=== PATIENT | female | born 1950 | race Two or more races ===

== ENCOUNTER 2025-02-17 13:54 | Inpatient (IN) | payer SELFPAY ==
[~2025-02-17] VITALS: Ht 149.9 cm; Wt 67.0 kg
[2025-02-17 14:59] LABS: MEAN PLATELET VOLUME 10.3 FL (7.4-10.4); RED CELL DISTRIBUTION WIDTH 15.1 % (11.5-14.5)
[2025-02-17 14:59] LABS: LEUKOCYTE ESTERASE ,URINE NEGATIVE (Neg); NITRITES, URINE NEGATIVE (Neg); OCCULT BLOOD,URINE TRACE-INTACT (Neg)
[2025-02-17 15:04] LABS: UA COLLECTION TYPE CLN CATCH MIDSTREAM
[2025-02-17 15:05] LABS: MUCUS STRANDS NONE SEEN /LPF (Neg); SQUAMOUS EPITHELIAL CELL,UR FEW /LPF (FEW)
--- NOTE | 2025-02-17 15:05 | Physician Documentation ---
History of Present Illness Chief Complaint: Abdominal Pain Stated Complaint: ABD PAIN Time Seen by MD: 14:26 Source: patient Exam Limitations: language barrier HPI 74 yof swedish speaking only h/o appendectomy p/w right sided abdominal pain after drinking a cup of coffee. No N/V/D. no blood in stools. Symptoms mild and improving since GI cocktail. Medication Reconciliation Allergies: Coded Allergies: No Known Allergies (Unverified , 02/17/25) Review of Systems All Other Systems at this time: Reviewed and Negative Constitutional: Denies: fever Cardiovascular: Denies: chest pain Gastrointestinal: Reports: abdominal pain Genitourinary: Denies: burning, frequency, flank pain Physical Exam Vital Signs: Temperature: 97.9, Source: Temporal, Heart Rate: 62, Respiratory Rate: 16, BP: 170/79, Pulse Oximetry: 99 Oxygen Flow Rate: 0 Physical Exam well appearing no distress awake alert oriented moist mucous membranes lungs ctab cardiac no murmur abdomen RuQ ttp. No guarding no rebound. skin pwd. Progress Progress Note consulted Dr. Lopez recommends lap cholecystectomy admit hospitalist consulted hospitalist agrees with admission plan Results/Orders Reviewed/noted all lab results: Yes Results/Orders Orders - BAUDILIO ENGLE MD BMP (02/17/25 14:24) Lipase (02/17/25 14:24) CMP (02/17/25 14:24) Ua W/Microscopic, Cult If Ind (02/17/25 14:49) Completed Orders - BAUDILIO ENGLE MD Cbc/Diff (02/17/25 14:24) Vital Signs 02/17/25 14:20 Temp 97.9 Pulse 62 Resp 16 B/P (MAP) 170/79 Pulse Ox 99 O2 Flow Rate 0 Laboratory Tests Test 02/17/25 14:47 02/17/25 14:49 White Blood Count 12.3 H Red Blood Count 4.52 Hemoglobin 13.3 Hematocrit 39.7 Mean Corpuscular Volume 87.8 Mean Corpuscular Hemoglobin 29.4 Mean Corpuscular Hemoglobin Concent 33.5 Red Cell Distribution Width 15.1 H Platelet Count 217 Mean Platelet Volume 10.3 Neutrophils (%) (Auto) 86.0 H Lymphocytes (%) (Auto) 11.3 L Monocytes (%) (Auto) 2.5 Eosinophils (%) (Auto) 0 Basophils (%) (Auto) 0.2 Neutrophils # (Auto) 10.6 H Lymphocytes # (Auto) 1.4 Monocytes # (Auto) 0.3 Eosinophils # (Auto) 0.0 Basophils # (Auto) 0.0 CBC Comment Chemistry Comments Urine Specimen Description Cln catch midstream Urine Color Yellow Urine Clarity Clear Urine pH 7.0 Urine Specific [place] 1.015 Urine Protein Negative Urine Glucose (UA) Negative Urine Ketones 40 H Urine Occult Blood Trace-intact Urine Nitrite Negative Urine Bilirubin Negative Urine Urobilinogen 0.2 Urine Leukocyte Esterase Negative Volume Urine Centrifuged 10 ml Urine Comment EKG/XRAY/CT/US/VASC/MRI Ultrasound : Impression independent interpretation of ultrasound by myself shows no effusion, no cholelithiasis or cholecystitis. Medical Decision Making Differential Dx:Considerations: Include: Cholangitis, Cholelithasis, Constipation Departure Disposition: ADMITTED INPATIENT Admitted to Inpatient Unit: to hospitalist Impression: Primary Impression: Acute cholecystitis Additional Impression Text 74 yof h/o appendectomy, p/w RUQ pain after drinking coffee. Labs with mild leukocytosis 12.3. No fever. U/s negative. S/o Dr. Vee pending CT abd pelvis. Referrals: NO PRIMARY CARE PROVIDER (PCP) Signature Scribe Signature: na Attestation: BAUDILIO Nieto MD Feb 17, 2025 15:05
[2025-02-17 15:13] LABS: CREATININE 0.74 MG/DL (0.40-0.90); TOTAL CARBON DIOXIDE 24.4 MMOL/L (24-32); eGFR 77 ML/MIN
--- NOTE | 2025-02-17 16:41 | RADIOLOGY REPORT ---
INDICATION: abdominal pain TECHNIQUE: Multiple real-time sonographic images were obtained of the right upper quadrant. COMPARISON: None FINDINGS: The liver demonstrates normal echotexture without focal mass lesions. The liver measures 1 2.9 cm. There is no intrahepatic or extrahepatic ductal dilatation. The common duct measures 0.4 cm. The gallbladder is without evidence of stone or sludge. The gallbladder wall measures 0.3 cm and is w ithin normal limits. The right kidney measures 7.9 cm. The right kidney is normal in contour, size, and shape. The echogen icity is normal. There is no hydronephrosis. The pancreas is not well visualized due to overlying bowel gas. IMPRESSION: Unremarkable right upper quadrant sonogram.
[2025-02-17] MEDS: LIDOcaine 2% Viscous 15ml cup MM PRN (17:06)
[2025-02-17] MEDS: mag hydrox/Alum hydrox/simeth 30ml oral suspension PO ONE (17:06)
[2025-02-17] MEDS ORDERED: iohexol 300mg/ml 100ml inj. ONE (17:31)
--- NOTE | 2025-02-17 19:58 | RADIOLOGY REPORT ---
CT OF THE ABDOMEN AND PELVIS WITH CONTRAST. HISTORY: abdominal pain COMPARISON: Right upper quadrant ultrasound obtained earlier the same day. TECHNIQUE: Helical axial CT images of the abdomen and pelvis were obtained with intravenous contrast. Multiplanar reformats. One or more of the following radiation dose reduction techniques were used fo r this examination: automated exposure control, adjustment of the mA and/or kV according to patient s ize, use of iterative reconstruction technique. FINDINGS: Imaged lung bases are grossly clear. Liver: No discrete Hepatic lesions as visualized. Gallbladder and biliary system: Distended gallbladder with gallbladder wall edema. Approximately 1.1 cm calculus seen near the gallbladder neck. This is not demonstrated on the recent ultrasound. Pancreas: Negative. Spleen: Negative. Adrenal Glands: Negative. Kidneys and collecting system: No hydroureteronephrosis. Retroperitoneum: Aortoiliac atherosclerotic calcifications. No evidence of abdominal aortic aneurysm . Lymph nodes: No discretely Enlarged lymph nodes identified. Bowel: Moderate hiatal hernia. No evidence of bowel obstruction. Normal caliber appendix. Colonic di verticulosis without definite CT evidence of diverticulitis at this time. No free intraperitoneal ai r or fluid identified. Small fat containing umbilical hernia. Pelvis: No sizable bladder calculus. Osseous structures: No destructive osseous lesions identified. Grade 1 anterolisthesis of L5 on S1. IMPRESSION: CT findings suggesting cholecystitis. Approximately 1.1 cm stone seen the gallbladder neck. A few other findings as above.
[2025-02-17] MEDS ORDERED: piperacillin/tazo 3.375gm/50ml 50 ML IV SCH (20:35)
[2025-02-17] MEDS: piperacillin/tazo 3.375gm/50ml 50 ML IV SCH (20:48)
--- NOTE | 2025-02-17 21:37 | PROGRESS NOTE ---
Progress Note ID Providers to CC ~ Progress Note Progress Note: pt seen and examined-needs kecia العلي in am JENNI WILLARD MD Feb 17, 2025 21:37
[2025-02-17] MEDS ORDERED: magnesium sulf-water 4G/100mL 100 ML IV PRN (22:10)
[2025-02-17] MEDS ORDERED: HYDROcodone/acetaminophen 5mg/325mg tablet PO PRN (22:10)
[2025-02-17] MEDS ORDERED: magnesium sulf-water 2g/50mL 50 ML IV PRN (22:10)
[2025-02-17] MEDS ORDERED: potassium Cl 20 mEq SR tablet PO PRN (22:10)
[2025-02-17] MEDS ORDERED: magnesium Cl slow-release 64mg tablet PO PRN (22:10)
--- NOTE | 2025-02-17 22:29 | HISTORY AND PHYSICAL-Residence ---
History & Physical Providers to CC Resident Creating Document: DIEGOSEPIDEH JOELLE ~ History of Present Illness Reason for Admit\Complaint: ACUTE CHOLECYSTITIS History of Present Illness History is limited due to language barrier, [place]-speaking patient, history gathered from daughter at bedside. 74-year-old female with no significant past medical history presented to the ED with chief complaints of abdominal pain since earlier this morning. Complaints of pain in the right upper quadrant, started at 8:00 a.m. this morning, associated with persistent nausea and vomiting. Denies significant chest pains, diaphoresis, fevers/chills, nasal congestion, expectoration, palpitations, or weight loss/weight gain. No other associated symptoms. Denies drinking alcohol or smoking. Denies recreational drug use. Does not use any home medications. Discussed advanced care directives and she wishes to be a full code. Allergies: Coded Allergies: No Known Allergies (Unverified , 02/17/25) Past Medical History Past Medical History None ROS All Other Systems: Reviewed and Negative ROS Reviewed in full. All negative except for pertinent positive HPI. Constitutional: Denies: fever Cardiovascular: Denies: chest pain Gastrointestinal: Reports: abdominal pain Genitourinary: Denies: burning, frequency, flank pain Exam Vitals: Vital Signs Date Time Temp Pulse Resp B/P (MAP) Pulse Ox O2 Delivery O2 Flow Rate FiO2 02/17/25 20:48 60 16 158/57 (90) 96 02/17/25 14:20 97.9 0 General: General: Awake and Alert, no acute distress. HEENT: Conjunctiva pink, Sclera clear, Mucus Membranes moist. Neck: Supple without masses and tenderness. Resp: Unlabored. Equal breath sounds bilaterally. Heart: Regular rhythm, normal S1 and S2, no rub, murmur or gallop. Abdomen: Right upper quadrant pain and tenderness, Bacon sign present. No guarding or rigidity. Normal bowel sounds x4. Extremities: Normal ROM, no swelling, nontender. No cyanosis,clubbing or edema. ENVIRONMENTAL SERVICES ASSISTANT: No gross motor or sensory abnormalities. Skin: Warm and Dry. Diagnostic Data Last Recorded Lab Results: 02/17/25 1447 02/17/25 1447 Advance Care Planning Advanced Care plannin - 30 Minutes Additional Plan 74-year-old female with no significant past medical history presented to the ED with chief complaints of abdominal pain since earlier this morning. Acute cholecystitis WBCs 12.3, vitals stable CT abdomen pelvis: Findings suggestive of acute cholecystitis, 1.1 cm stone in the gallbladder neck. Pain medications p.r.n. Empiric antibiotics IV Zosyn Dr. Sahu consulted, appreciate recommendations NPO at midnight, surgery in a.m. Code Status: Full code DVT prophylaxis: SCDs Analgesia/sedation: Morphine/[place] Line/tube: PIV GI prophylaxis: None Nutrition: NPO Prognosis: Guarded Disposition: Continue medical management. Sepideh Blanco MD. IM Resident PGY-3 I saw and discussed with the resident team Pt with acute cholecystitis. Sx already consulted On Zosyn Agree with assessment and plan Date of Service: Feb 17, 2025 Billing Provider: NICOLE SANTOS MD, ELIZABETH, RES Feb 17, 2025 22:29 NICOLE SANTOS MD Feb 18, 2025 04:02
[2025-02-17] MEDS: normal saline 1000ml 1,000 ML IV SCH (22:49)
[2025-02-17 23:30] VITALS: BP 149/63; PULSE 62; RESP 20; TEMP 97.8; O2SAT 97
[2025-02-18] VITALS (27 sets, daily range): BP systolic 120–174; BP diastolic 63–103; PULSE 57–77; RESP 12–20; TEMP 97.5–98.7; O2SAT 92–99
[2025-02-18] MEDS ORDERED: piperacillin/tazo 3.375gm/50ml 50 ML IV SCH
[2025-02-18] MEDS: potassium Cl 20 mEq SR tablet PO PRN (01:03)
[2025-02-18 05:47] LABS: INR 1.1 INR
[2025-02-18 05:49] LABS: MEAN PLATELET VOLUME 11.2 FL (7.4-10.4); RED CELL DISTRIBUTION WIDTH 15.0 % (11.5-14.5)
[2025-02-18 05:56] LABS: CREATININE 0.49 MG/DL (0.40-0.90); PHOSPHORUS 3.4 MG/DL (2.3-4.5); TOTAL CARBON DIOXIDE 23.8 MMOL/L (24-32); eCRCL 71 ML/MIN; eGFR > 90 ML/MIN
[2025-02-18] MEDS ORDERED: morphine 4 MG/ML inj SYRINge IV PRN (07:35)
[2025-02-18] MEDS ORDERED: hydrALAZINE 20mg/ml inj. IV PRN (07:35)
[2025-02-18] MEDS: ringers solution, lacted 1,000 ML IV SCH (07:35)
[2025-02-18] MEDS ORDERED: ondansetron/PF 4mg/2ml inj IV PRN ×2 (07:35→12:15)
[2025-02-18] MEDS ORDERED: fentaNYL/PF 50MCG/1 ML 2ML syringe IV PRN ×2 (07:35)
[2025-02-18] MEDS: K and/or MAG REPLACEMENT MC SCH (08:00)
--- NOTE | 2025-02-18 08:39 | ELECTROCARDIOGRAPH REPORT ---
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 PEGGY Way Measurements Intervals [place] Rate: 60 P: 56 MS: 132 QRS: 73 QRSD: 93 T: 56 QT: 451 QTc: 451 Interpretive Statements Sinus rhythm Electronically Signed On 02-18-2025 16:30:[address] Please click the below link to view image of tracing.
[2025-02-18 08:51] LABS: INR 1.1 INR
--- NOTE | 2025-02-18 08:51 | RADIOLOGY REPORT ---
CHEST RADIOGRAPH Indication: pre op greater than 70 yrs old. pain Technique: Single frontal view of the chest was obtained Comparison: None FINDINGS: Lines and Tubes: None Lungs: No focal consolidation. Pleura: No effusion. No pneumothorax. Cardiomediastinal contours: Unremarkable Bones: No acute osseous abnormality. IMPRESSION: No acute cardiopulmonary disease.
[2025-02-18] MEDS ORDERED: midazolam 1 mg/ML 2ml injection ONE (10:15)
[2025-02-18] MEDS ORDERED: fentaNYL/PF 50MCG/1 ML 2ML syringe ONE (10:15)
[2025-02-18] MEDS ORDERED: rocuronium 10mg/ml inj IV ONE (10:16)
[2025-02-18] MEDS ORDERED: glycopyrrolate 0.2mg/ml inj ONE (10:16)
[2025-02-18] MEDS ORDERED: acetaminophen 1,000mg/100ml IV 100 ML IV ONE (10:16)
[2025-02-18] MEDS ORDERED: propofol inj 20 ML IV ONE (10:16)
[2025-02-18] MEDS ORDERED: ondansetron/PF 4mg/2ml inj ONE (10:16)
[2025-02-18] MEDS ORDERED: LIDOcaine 2% (20mg/ml) 5ml vial ONE (10:17)
--- NOTE | 2025-02-18 10:23 | PROGRESS NOTE ---
Progress Note ID Providers to CC ~ Progress Note Progress Note: discussed procedure including risks/benefits/alternatives JENNI WILLARD MD Feb 18, 2025 10:23
[2025-02-18] MEDS: BUPIVAcaine/PF 2.5 mg/ml (0.25%) 30ml vial IJ ONE (10:36)
[2025-02-18] MEDS ORDERED: dexamethasone sod phosphate 4mg/ml inj. ONE (10:48)
[2025-02-18] MEDS ORDERED: labetalol 20mg/4ml (5mg/ml) syringe IV ONE (11:27)
[2025-02-18] MEDS: labetalol 20mg/4ml (5mg/ml) syringe IV PRN (12:06)
--- NOTE | 2025-02-18 12:08 | OPERATIVE REPORT ---
Operative Report Providers to CC ~ Date of Procedure: Feb 18, 2025 Pre-Operative Diagnosis: ACUTE CHOLECYSTITIS Post-Operative Diagnosis SAME with incarcerated umbilical hernia Procedure Performed robo severiano/robo repair umbilical hernia Surgeon: florina Chemical Supervisor none Anesthesiologist: Raul Lopez Type of Anesthesia: General Findings: cholecystitis/incarcerated umbilical hernia Estimated Blood Loss: min Specimen Removed: JENNI Stewart MD Feb 18, 2025 12:08
[2025-02-18] MEDS: ondansetron/PF 4mg/2ml inj IV PRN (12:13)
[2025-02-18] MEDS ORDERED: HYDROcodone/acetaminophen 5mg/325mg tablet PO PRN (12:15)
[2025-02-18] MEDS: HYDROcodone/acetaminophen 10/325mg tab PO PRN (13:01)
--- NOTE | 2025-02-18 13:26 | OPERATIVE REPORT ---
DATE OF SURGERY: 02/18/2025 DICTATING PHYSICIAN: Nick Mckenzie MD PREOPERATIVE DIAGNOSES: Cholecystitis and cholelithiasis. POSTOPERATIVE DIAGNOSES: Cholecystitis and cholelithiasis with incarcerated umbilical hernia. PROCEDURES PERFORMED: * Robotic repair of incarcerated umbilical hernia, less than 3 cm. * Robotic cholecystectomy. SURGEON: Nick Mckenzie MD ANESTHESIA: General/Dr. Lopez. DRAINS: None. INDICATIONS FOR OPERATION: A 74-year-old female presented in the ER with abdominal pain, found to have cholecystitis, taken to surgery for robotic cholecystectomy and incarcerated umbilical hernia identified intraoperatively. DESCRIPTION OF PROCEDURE: The patient was placed supine on the operating table. After induction of general anesthesia and placement of endotracheal tube, the abdomen was prepped and draped. A subumbilical incision was then made and Jabari port placed using open technique. Pneumoperitoneum was begun by insufflation of CO2. Additional ports were placed in the left lower quadrant. The patient had incarcerated umbilical hernia. Two additional ports were placed on the left. Robot was then brought to the field. Camera port docked. Camera placed, camera targeted. Additional ports were then docked and instruments were then placed. Adhesions were then taken down. Umbilical hernia was then reduced. Defect was closed with a suture of 0 V-Loc oversewn multiple times. When hemostasis was found to be adequate, robotic instruments were removed. Robot undocked from the field. Two additional ports were placed in the right upper quadrant. Robot brought back to the field. Camera placed, camera targeted. Additional ports were docked and instruments placed. Gallbladder fundus was grasped and retracted cephalad after the abdomen was explored. Cystic duct identified, isolated, ligated, clipped and divided as was the cystic artery. The gallbladder was mobilized out of the gallbladder fossa. When hemostasis was found to be adequate, robotic instruments were removed. Gallbladder was placed in bag using endoscope. Abdomen was copiously irrigated with antibiotic-containing solution. Ports were then removed with no active bleeding. Final port and camera withdrawn. Gallbladder then removed. Wounds were closed in layers. Skin was closed with subcuticular stitch. Dressings applied. The patient was transferred to recovery in stable condition. Nick Mckenzie MD TID: [id number] RECEIPT: [id number] KATHY/WILLIE
[2025-02-18] MEDS: HYDROmorphone inj. 0.5 MG/0.5 ML DISP.SYRIN IV PRN (15:57)
--- NOTE | 2025-02-18 18:33 | CARDIOLOGY REPORT ---
APPROVED REPORT EXAM: Comprehensive 2D, Doppler, and color-flow Echocardiogram. Patient Location: 347 B Blood Pressure: 149/63 mmHg Heart Rate: 61 bpm Rhythm: SINUS Indications PRE-OP CHOLECYSTECTOMY Clinical Informatics Educator: none Previous echo: none 2D Dimensions RVDd 3.0 cm LA Diam5.2 cm IVSd 1.0 (0.7-1.1cm) LVDd 4.2 cm PWd 0.9 (0.7-1.1cm) RA Major4.7 cm IVSs 1.3 (0.8-1.2cm) RA Minor4.2 cm LVDs 3.2 (2.5-4.0cm) PWs 1.2 (0.8-1.2cm) LVOT Diameter 1.95 (1.8-2.4cm) LVEF(%) 68.0 (>50%) Ao Asc Diam.2.66 cmIVC 15.53 mm FS (%) 31.1 % SV 45.2 ml CO 2.7 L/min M-Mode Dimensions Left Atrium(MM) 3.73 (2.5-4.0cm) Aortic Root 2.75 (2.2-3.7cm) Aortic Cusp Exc 1.79 (1.5-2.0cm) MV EPSS 0.3 (<0.5cm) Biplane 2D LA Volumes LA ESV Index 27.23 mL/m2 Aortic Valve AoV Peak Shaji. 128.5 cm/s AoV VTI 25.8 cm AO Peak GR. 6.6 mmHg AO Mean GR. 4 mmHg LVOT VTI 23.19 cm LVOT Peak Shaji. 105.1 cm/s MARY(VTI)/BSA 2.69 cm2/m2 MARY (VTI) 2.69 cm2 Mitral Valve MV E Velocity 74.9 cm/s MV Peak Gr. 3 mmHg MV DECEL TIME 220 ms MV A Velocity 94.3 cm/s MV PHT 60 ms E/A Ratio 0.8 MVA (PHT) 3.67 cm2 MV VMax79.6 cm/s TDI Medial E' P. V 8.37 cm/s E/Medial E' 8.9 Tricuspid Valve TR P. Velocity 289 cm/s RAP ESTIMATE 10 mmHg TR Peak Gr. 34 mmHg RVSP 44 mmHg Pulmonary Vein S1 Velocity 71.5 cm/s D2 Velocity 45.0 cm/s PVa Hgciwcpq47.6 cm/s PVa [id number] msec LEFT VENTRICLE Normal LV size and wall thickness. Overall systolic function is normal. LVEF is 65-70%. RIGHT VENTRICLE RV is normal size and function. RVSP is estimated at 44 mmHg. ATRIA The left atrium size is normal. The right atrium size is normal. AORTIC VALVE Trileaflet AV appears mildly sclerotic without stenosis. Trivial insufficiency. MITRAL VALVE Mild MV annular calcification without stenosis. Mild regurgitation. TRICUSPID VALVE TV appears structurally normal with mild regurgitation. PULMONIC VALVE Normal PV without stenosis, physiologic insufficiency. GREAT VESSELS Aortic root is normal in size. Ascending aorta is normal in size. The IVC is normal in size and colla pses greater than 50% with inspiration. PERICARDIUM Normal pericardium. No effusion. Other Information Study Quality: Adequate Conclusion Normal LV size and wall thickness. Overall systolic function is normal. LVEF is 65-70%. RV is normal size and function. RVSP is estimated at 44 mmHg. The left atrium size is normal. The right atrium size is normal. Trileaflet AV appears mildly sclerotic without stenosis. Trivial insufficiency. Mild MV annular calcification without stenosis. Mild regurgitation. TV appears structurally normal with mild regurgitation. Normal pericardium. No effusion.
--- NOTE | 2025-02-18 18:46 | CONSULTATION ---
DATE OF CONSULTATION: 02/17/2025 DICTATING PHYSICIAN: Nick Mckenzie MD REASON FOR CONSULTATION: Abdominal pain. HISTORY OF PRESENT ILLNESS: The patient is a 74-year-old female who is in the ER with complaints of upper abdominal discomfort. cholecystitis is now requested for the questioning. She has had associated nausea, vomiting, right upper quadrant pain. No shortness of breath. No fever or chills. PAST MEDICAL HISTORY: Essentially unremarkable. PAST SURGICAL HISTORY: Appendectomy. HOME MEDICATIONS: See chart. ALLERGIES: None. SOCIAL HISTORY: Unremarkable. REVIEW OF SYSTEMS: See HPI. PHYSICAL EXAMINATION: GENERAL: Well-nourished female in no distress. VITAL SIGNS: Unremarkable. HEART: Regular rate and rhythm. LUNGS: Patent. ABDOMEN: She has right upper ____ tenderness. SKIN: Unremarkable. NEUROLOGIC: Exam is nonfocal. LABORATORY DATA: Included WBC of 12, hematocrit of 39, platelet count 217. LFTs essentially unremarkable, lipase 26. IMAGING STUDIES: CT abdomen and pelvis confirms evidence of cholecystitis. IMPRESSION: Cholecystitis. RECOMMENDATIONS: * Admit. * Hydrate. * global cholecystectomy. Nick Mckenzie MD TID: [id number] RECEIPT: [id number] KB/VIS/AMA
--- NOTE | 2025-02-18 20:19 | PROGRESS NOTE ---
Daily Progress Note Providers to CC ~ Antibiotic Timeout Antibiotic Ordered?: Yes Subjective The patient is status post laparoscopic robotic cholecystectomy and repair of incarcerated umbilical hernia with mesh this morning. The patient is doing well postop and had no acute complaints in his no other health problems Objective Vital Signs Date Time Temp Pulse Resp B/P (MAP) Pulse Ox O2 Delivery O2 Flow Rate FiO2 02/18/25 15:57 18 02/18/25 15:45 97.8 74 148/77 (100) 97 Nasal Cannula 2.0 Result Diagram: 02/18/2541602/18/25416 Gen. No acute distress alert and oriented 4 Lungs clear to ascultation bilaterally, no wheezes rales or rhonchi appreciated Heart normal sinus rhythm no murmurs rubs or clicks noted Abdomen soft mildly distended nontender bowel sounds are normoactive Lower extremities no clubbing cyanosis, nor edema appreciated bilaterally Coagulation Studies Laboratory Tests Test 02/18/25 07:45 Prothrombin Time 10.9 SECONDS (9.0-12.0) INR International Normalized Ratio 1.1 INR Coagulation Comments Problem\Assessment\Plan Problems/Diagnosis: (1) Acute cholecystitis # acute cholecystitis Status post robotic laparoscopic cholecystectomy with Dr. Mckenzie Continue IV Zosyn On a clear liquid diet # incarcerated umbilical hernia Status post laparoscopic robotic umbilical hernia repair with mesh with surgeon Dr. Mckenzie A clear liquid diet # DVT prophylaxis SCDs Date of Service: Feb 18, 2025 Billing Provider: NITZA ADHIKARI DO Common Visit Codes: [id number] INP/OBS CARE(MOD) NITZA ADHIKARI DO Feb 18, 2025 20:19
[2025-02-19 04:31] LABS: MEAN PLATELET VOLUME 10.4 FL (7.4-10.4); RED CELL DISTRIBUTION WIDTH 14.9 % (11.5-14.5)
[2025-02-19 04:48] LABS: CREATININE 0.73 MG/DL (0.40-0.90); PHOSPHORUS 3.1 MG/DL (2.3-4.5); TOTAL CARBON DIOXIDE 24.6 MMOL/L (24-32); eCRCL 48 ML/MIN; eGFR 78 ML/MIN
[2025-02-19 06:00] VITALS: BP 133/63; PULSE 79; RESP 16; TEMP 98.6; O2SAT 93
[2025-02-19 07:55] VITALS: RESP 16
[2025-02-19 10:00] VITALS: BP 128/62; PULSE 60; RESP 19; TEMP 97.7; O2SAT 95
--- NOTE | 2025-02-19 14:37 | PROGRESS NOTE ---
Progress Note ID Providers to CC ~ Progress Note Progress Note: doing well/anticipate dc in am JENNI WILLARD MD Feb 19, 2025 14:37
[2025-02-19] MEDS ORDERED: NO HOME MEDS (14:42)
--- NOTE | 2025-02-19 17:41 | PROGRESS NOTE ---
Daily Progress Note Providers to CC ~ Antibiotic Timeout Antibiotic Ordered?: Yes Subjective The patient's encounter occurred with the presence of the video taxation consultant s ervice. The patient is RN Meghan informed me today that the patient has been nauseated and was experiencing some abdominal discomfort this morning however this has since resolved and the patient is no longer is experiencing nausea however she continues to have poor p.o. intake in his not had a bowel movement as of yet Objective Vital Signs Date Time Temp Pulse Resp B/P (MAP) Pulse Ox O2 Delivery O2 Flow Rate FiO2 02/19/25 10:00 97.7 60 19 128/62 (84) 95 Room Air 02/18/25 22:00 2.0 Result Diagram: 02/19/2541102/19/25411 Gen. No acute distress alert and oriented 4 Lungs clear to ascultation bilaterally, no wheezes rales or rhonchi appreciated Heart normal sinus rhythm no murmurs rubs or clicks noted Abdomen soft mildly distended nontender bowel sounds are slightly hypoactive Lower extremities no clubbing cyanosis, nor edema appreciated bilaterally Coagulation Studies Laboratory Tests Test 02/18/25 07:45 Prothrombin Time 10.9 SECONDS (9.0-12.0) INR International Normalized Ratio 1.1 INR Coagulation Comments Problem\Assessment\Plan Problems/Diagnosis: (1) Acute cholecystitis This is a 74-year-old Montene[place] only speaking patient who presented with acute cholecystitis and was discovered she has a an incarcerated umbilical hernia I was anticipating discharging the patient this morning however the patient had some nausea and a abdominal discomfort when I spoke to Meghan the patient's RN however this has since resolved anticipate the patient will be discharged in the a.m.. # acute cholecystitis Status post robotic laparoscopic cholecystectomy with Dr. Mckenzie on the morning of 02/18/2025 Continue IV Zosyn On a clear liquid diet Improving # incarcerated umbilical hernia Status post laparoscopic robotic umbilical hernia repair with mesh with surgeon Dr. Mckenzie on the morning of 02/18/2025 A clear liquid diet Improving # DVT prophylaxis SCDs Date of Service: Feb 19, 2025 Billing Provider: NITZA ADHIKARI DO Common Visit Codes: [id number] INP/OBS CARE(MOD) NITZA ADHIKARI DO Feb 19, 2025 17:41
[2025-02-19 18:00] VITALS: BP 145/67; PULSE 67; RESP 18; TEMP 97.5; O2SAT 95
[2025-02-19] MEDS: mag hydrox/Alum hydrox/simeth 30ml oral suspension PO PRN (21:53)
[2025-02-19 22:00] VITALS: BP 102/49; PULSE 76; RESP 13; TEMP 98.4; O2SAT 93
[2025-02-20 05:47] LABS: MEAN PLATELET VOLUME 11.2 FL (7.4-10.4); RED CELL DISTRIBUTION WIDTH 14.8 % (11.5-14.5)
[2025-02-20 06:19] LABS: CREATININE 0.71 MG/DL (0.40-0.90); PHOSPHORUS 3.2 MG/DL (2.3-4.5); TOTAL CARBON DIOXIDE 23.7 MMOL/L (24-32); eCRCL 49 ML/MIN; eGFR 81 ML/MIN
[2025-02-20 06:39] LABS: LARGE PLATELETS MODERATE; PLATELET ESTIMATE NORMAL
[2025-02-20 06:49] VITALS: BP 136/66; PULSE 73; RESP 14; TEMP 98.1; O2SAT 91
[2025-02-20 10:00] VITALS: BP 120/58; PULSE 77; RESP 15; TEMP 97.5; O2SAT 95
[2025-02-20] MEDS: metoclopramide 5 mg/ml inj IV SCH (11:36)
[2025-02-20] MEDS ORDERED: metoclopramide 5 mg/ml inj IV SCH (14:00)
--- NOTE | 2025-02-20 14:24 | PROGRESS NOTE ---
Progress Note ID Providers to CC ~ Progress Note Progress Note: slow progress/add JENNI Montero MD Feb 20, 2025 14:24
[2025-02-20] MEDS: potassium Cl 40MEQ/1/2NS 520ml 520 ML IV PRN (14:58)
[2025-02-20 18:00] VITALS: BP 120/63; PULSE 76; RESP 17; TEMP 97.9; O2SAT 94
--- NOTE | 2025-02-20 18:53 | PROGRESS NOTE ---
Daily Progress Note Providers to CC ~ Antibiotic Timeout Antibiotic Ordered?: Yes Subjective Patient was seen in presence of nursing staff and patient's daughter today. Patient is able to ambulate by herself to the bathroom. Pass the liquidy brown color stool which I saw in hat. Surgical pain present over abdomen. No other new concerns. Patient also has pain over right shoulder which she has since last five years according to nursing staff Objective Vital Signs Date Time Temp Pulse Resp B/P (MAP) Pulse Ox O2 Delivery O2 Flow Rate FiO2 02/20/25 10:00 97.5 77 15 120/58 (78) 95 Room Air 02/18/25 22:00 2.0 Result Diagram: 02/20/25 04102/20/25410 General-patient not in any acute distress, alert awake chronically ill- appearing HEENT-atraumatic normocephalic, neck supple without elevated JVD, no thyromegaly or carotid bruit. No lymphadenopathy bilaterally. Eyes-no icterus or pallor seen in eyes Chest-clear to auscultation bilaterally, breathing nonlabored no tachypnea, no wheezing, no crepitation, no crackles. Heart-S1-S2 normal, regular heart rate no murmur Abdomen bowel sounds positive on auscultation, soft nondistended signs of mild discomfort present over surgical site. no guarding, no rigidity Skin no active skin rash Neurology-grossly intact, nonfocal alert awake Extremity- no pedal edema able to move all 4 extremities, ambulate Psychiatry - patient is not confused or agitated cooperated during physical examination Coagulation Studies Laboratory Tests Test 02/18/25 07:45 Prothrombin Time 10.9 SECONDS (9.0-12.0) INR International Normalized Ratio 1.1 INR Coagulation Comments Problem\Assessment\Plan Problems/Diagnosis: (1) Acute cholecystitis This is a 74-year-old Romansh only speaking patient who presented with acute cholecystitis and was discovered she has a an incarcerated umbilical hernia I was anticipating discharging the patient this morning however the patient had some nausea and a abdominal discomfort when I spoke to Meghan the patient's RN however this has since resolved anticipate the patient will be discharged in the a.m.. # acute cholecystitis Status post robotic laparoscopic cholecystectomy with Dr. Mckenzie on the morning of 02/18/2025 Continue IV Zosyn On a clear liquid diet Improving # incarcerated umbilical hernia Status post laparoscopic robotic umbilical hernia repair with mesh with surgeon Dr. Mckenzie on the morning of 02/18/2025 A clear liquid diet Improving # DVT prophylaxis SCDs Further management as per surgical team we will continue to follow patient in AM . Date of Service: Feb 20, 2025 Billing Provider: CHETAN CHE MD Common Visit Codes: [id number] INP/OBS CARE(HIGH) CHETAN CHE MD Feb 20, 2025 18:53
[2025-02-20 20:00] VITALS: RESP 18
[2025-02-20 22:00] VITALS: BP 159/70; PULSE 67; RESP 12; TEMP 97.8; O2SAT 97
[2025-02-21 04:42] LABS: MEAN PLATELET VOLUME 10.5 FL (7.4-10.4); RED CELL DISTRIBUTION WIDTH 14.6 % (11.5-14.5)
[2025-02-21 06:00] VITALS: BP 149/65; PULSE 78; RESP 17; TEMP 97.2; O2SAT 97
[2025-02-21 06:49] LABS: CREATININE 0.70 MG/DL (0.40-0.90); PHOSPHORUS 3.5 MG/DL (2.3-4.5); TOTAL CARBON DIOXIDE 25.3 MMOL/L (24-32); eCRCL 50 ML/MIN; eGFR 82 ML/MIN
[2025-02-21] MEDS: pantoprazole 40mg Tablet.DR PO ONE (09:55)
[2025-02-21 10:00] VITALS: BP 161/95; PULSE 75; RESP 17; TEMP 98; O2SAT 98
[2025-02-21 13:42] LABS: C DIFFICILE TOXINS A&B NEGATIVE (Neg)
[2025-02-21 13:43] LABS: C DIFF ANTIGEN NEGATIVE (NEGATIVE); C DIFF SPECIMEN=DIARRHEA? ACCEPTABLE
--- NOTE | 2025-02-21 13:55 | PROGRESS NOTE ---
Progress Note ID Providers to CC ~ Progress Note Progress Note: doing well/ok to dc JENNI WILLARD MD Feb 21, 2025 13:55
[2025-02-21] MEDS ORDERED: ACET-1008 PO (15:34)
[2025-02-21] MEDS ORDERED: HYDR-3965 PO (15:43)
[2025-02-21] MEDS ORDERED: CIPR-259 PO (15:43)
[2025-02-21] MEDS ORDERED: METR-159 PO (15:43)
[2025-02-21] MEDS ORDERED: OMEP20CA15 PO (15:43)
[2025-02-21] MEDS ORDERED: POLY17PO10 PO (15:45)
--- NOTE | 2025-02-21 17:33 | DISCHARGE SUMMARY ---
Discharge Summary Providers to CC ~ Discharge Summary Admission Diagnosis: ACUTE CHOLECYSTITIS Hospital Course DATE OF ADMISSION: 02/17/2025 DATE OF DISCHARGE: 02/21/2025 CBC testing done on February 21, 2025 WBC 7.0 hemoglobin 10.8 hematocrit 32.4 platelet count 142. Serum chemistry done on February 21, 2025 sodium 139 potassium 3.5 creatinine 0.70 GFR 82 , normal liver enzymes. Lipase 26. Culture showed no growth after three days ECHOCARDIOGRAMConclusion Normal LV size and wall thickness. Overall systolic function is normal. LVEF is 65-70%. RV is normal size and function. RVSP is estimated at 44 mmHg. The left atrium size is normal. The right atrium size is normal. Trileaflet AV appears mildly sclerotic without stenosis. Trivial insufficiency. Mild MV annular calcification without stenosis. Mild regurgitation. TV appears structurally normal with mild regurgitation. Normal pericardium. No effusion. CHEST,SINGLE VIEWIMPRESSION: No acute cardiopulmonary disease. CT ABDOMEN PELVISIMPRESSION: CT findings suggesting cholecystitis. Approximately 1.1 cm stone seen the gallbladder neck. A few other findings as above. ULTRASOUND OF ABDOMENIMPRESSION: Unremarkable right upper quadrant sonogram. Discharge Diagnosis\\Comment: # acute cholecystitis # incarcerated umbilical hernia # chronic gastritis Operations\\Procedures: Status post robotic laparoscopic cholecystectomy with Dr. Mckenzie on the morning of 02/18/2025 Consultants: Dr. Mckenzie Complications: None Condition on DC: Stable New Medications: Ciprofloxacin HCl (Cipro) 500 Mg Tablet 1 TAB PO Q12H for 5 Days, #10 TAB Hydrocodone Bit/Acetaminophen 5/325 MG ([place] 5/325 MG) 5 Mg/325 Mg Tablet 1 TAB PO Q8H PRN for moderate or severe pain 4-10 for 7 Days, #20 TAB Metronidazole* (Flagyl*) 500 Mg Tablet 1 TAB PO BID for 5 Days, #10 TAB Omeprazole (Omeprazole) 20 Mg Capsule.dr 1 CAP PO BKF for 10 Days, #10 CAP 0 Refills Polyethylene Glycol 3350* (Miralax*) 1 Packet Packet 1 PACKET PO HS for 7 Days, #7 PACKET Changed Medications: Acetaminophen (Tylenol) 325 Mg Tablet 1 TAB PO Q8H PRN for pain or fever for 7 Days, #20 TAB (Changed from: QDAY PRN; 30; 30) Discontinued Medications: Home Med List (No Home Medications) Each Discharge Summary: As per admitting provider's history and physical note" History is limited due to language barrier, Azerbaijani-speaking patient, history gathered from daughter at bedside. 74-year-old female with no significant past medical history presented to the ED with chief complaints of abdominal pain since earlier this morning. Complaints of pain in the right upper quadrant, started at 8:00 a.m. this morning, associated with persistent nausea and vomiting. Denies significant chest pains, diaphoresis, fevers/chills, nasal congestion, expectoration, palpitations, or weight loss/weight gain. No other associated symptoms. Denies drinking alcohol or smoking. Denies recreational drug use. Does not use any home medications. Discussed advanced care directives and she wishes to be a full code." During hospitalization patient was treated for # acute cholecystitis Status post robotic laparoscopic cholecystectomy with Dr. Mckenzie on the morning of 02/18/2025 Continue IV Zosyn On a clear liquid diet Improving # incarcerated umbilical hernia Status post laparoscopic robotic umbilical hernia repair with mesh with surgeon Dr. Mckenzie on the morning of 02/18/2025 A clear liquid diet, she is advanced to full liquid diet later Improving # DVT prophylaxis SCDs Patient's clinical condition improved she was ambulating , she passed the stools. She was evaluated by Dr. Sahu today who is okay to discharge the patient. Patient has been afebrile getting discharged home in stable condition. Patient is seen and examined on the day of discharge discharge instructions provided to the patient all questions and concerns answered to the best of my professional medical knowledge.Follow up with Dr Mckenzie in 1 week Call [phone]. No lifting greater than 10 pounds until you speak with Dr Mckenzie at follow up appt.Ok to shower keep site Clean and dry. no jacuzzi or bathtubs. [place]ijani translation services used for translation purposes. General-patient not in any acute distress, alert awake chronically ill- appearing HEENT-atraumatic normocephalic, neck supple without elevated JVD, no thyromegaly or carotid bruit. No lymphadenopathy bilaterally. Eyes-no icterus or pallor seen in eyes Chest-clear to auscultation bilaterally, breathing nonlabored no tachypnea, no wheezing, no crepitation, no crackles. Heart-S1-S2 normal, regular heart rate no murmur Abdomen bowel sounds positive on auscultation, soft nondistended signs of mild discomfort present over surgical site. no guarding, no rigidity Skin no active skin rash Neurology-grossly intact, nonfocal alert awake Extremity- no pedal edema able to move all 4 extremities, ambulate Psychiatry - patient is not confused or agitated cooperated during physical examination *Problems/Diagnosis: (1) Acute cholecystitis Status: Acute Total Time Spent on D/C: > 30 Minutes Date of Service: Feb 21, 2025 Billing Provider: CHETAN CHE MD Common Visit Codes: 60808-BQV/OBS DISCH DAY >30min CHETAN CHE MD Feb 21, 2025 17:27
[2025-02-21] MEDS ORDERED: ciprofloxacin lact 400MG/200ML 200 ML IV SCH (20:00)
[2025-02-21] MEDS ORDERED: metroNIDAZOLE-Flagyl 500mg/NS 100 ML IV SCH (20:00)
== END 2025-02-21 16:45 | disposition home or self-care (01) | DRG 354 ==
LOC: EDBD 13:55 → ER 13:55 → ED HOLD 21:50 → SUR 3N 23:25
PROVIDERS: ADMIT Internal Medicine; ATTEND Family Medicine
PROC: BW211ZZ Computerized Tomography (CT Scan) of Abdomen and Pelvis using Low Osmolar Contrast (ICD-10-PCS; 2025-02-17)
PROC: 0WQF4ZZ Repair Abdominal Wall, Percutaneous Endoscopic Approach (ICD-10-PCS; 2025-02-18)
PROC: 8E0W4CZ Robotic Assisted Procedure of Trunk Region, Percutaneous Endoscopic Approach (ICD-10-PCS; 2025-02-18)
PROC: 0FT44ZZ Resection of Gallbladder, Percutaneous Endoscopic Approach (ICD-10-PCS; principal; 2025-02-18 10:18)
DX: K42.0 Umbilical hernia with obstruction, without gangrene (principal); K80.12 Calculus of gallbladder with acute and chronic cholecystitis without obstruction; K29.50 Unspecified chronic gastritis without bleeding
CPT/HCPCS: 93306; 96361; 96365; 99285; Z7506; Z7508; 36415; 71045; 74177; 76700; 80053; 81001; 82948; 83605; 83690; 83735; 84100; 84132; 85008; 85025; 85610; 87040; 87081; 87324; 87449; 93005; 97161; 97530; 97535; A4215; A4615; A4618; A7000; G0378; J0131; J1100; J1171; J2003; J2250; J2405; J2543; J2704; J2710; J2765; J3010; J3480; J3490; J7030; J7120; Q9967

== ENCOUNTER 2025-03-05 12:44 | Emergency (ER) | payer MEDICAID ==
[~2025-03-05] VITALS: Ht 152.4 cm; Wt 63.8 kg
[~2025-03-05 12:44] MED LIST: ACET-1008 PO; OMEP20CA15 PO
[2025-03-05 13:57] LABS: MEAN PLATELET VOLUME 9.6 FL (7.4-10.4); RED CELL DISTRIBUTION WIDTH 15.1 % (11.5-14.5)
[2025-03-05 14:11] LABS: LEUKOCYTE ESTERASE ,URINE NEGATIVE (Neg); NITRITES, URINE NEGATIVE (Neg); OCCULT BLOOD,URINE NEGATIVE (Neg)
[2025-03-05 14:12] LABS: CREATININE 0.67 MG/DL (0.40-0.90); TOTAL CARBON DIOXIDE 28.6 MMOL/L (24-32); eCRCL 54 ML/MIN; eGFR 86 ML/MIN
[2025-03-05 14:13] LABS: UA COLLECTION TYPE CLN CATCH MIDSTREAM
[2025-03-05 14:19] LABS: URINE HCG NEGATIVE (NEG)
[2025-03-05 19:21] VITALS: TEMP 98.4
--- NOTE | 2025-03-05 20:34 | Physician Documentation ---
History of Present Illness Chief Complaint: Abdominal Pain Stated Complaint: ABD PAIN Time Seen by MD: 20:12 OK to notify your PCP?: Yes Source: patient, RN/MD, RN notes reviewed, old records Mode of Arrival: POV Exam Limitations: no limitations HPI 75 year old female seen in bed 07 presents to the emergency department for complaints of abdominal pain. She primary speaks Pashto so patient history is limited. Patient states that her pain has been onset for three days. Patient brought in with family who states that she has been having constant abdominal pain with small amounts of diarrhea. She has not been vomiting and endorses drinking liquids. Patient denies any fevers. She has had recent sick exposure as her family has COVID. Of note, [facility] 20[facility] due to acute cholecystitis where she was admitted for four days and seen by Dr. Chin for a cholecystectomy. On this visit she was noted to have an ejection fraction of 65%. Medication Reconciliation Allergies: Coded Allergies: No Known Allergies (Unverified , 03/05/25) Scheduled Omeprazole (Omeprazole), 1 CAP PO BKF Scheduled PRN Acetaminophen (Tylenol), 1 TAB PO Q8H PRN for pain or fever, (Reported) Discontinued Medications Ciprofloxacin HCl (Cipro), 1 TAB PO Q12H Discontinued Reason: Auto Discontinued Hydrocodone Bit/Acetaminophen 5/325 MG ([place] 5/325 MG), 1 TAB PO Q8H PRN for moderate or severe pain 4-10 Discontinued Reason: Auto Discontinued Metronidazole* (Flagyl*), 1 TAB PO BID Discontinued Reason: Auto Discontinued Polyethylene Glycol 3350* (Miralax*), 1 PACKET PO HS Discontinued Reason: Auto Discontinued Past Medical History Past Medical History: Bowel Obstruction, Hernia Past Surgical History: cholecystectomy Review of Systems All Other Systems at this time: Reviewed and Negative ROS As stated above in the HPI, otherwise all systems are reviewed and negative. Physical Exam Vital Signs: RN Vital Signs have been reviewed: Yes, Temperature: 98.4, Source: Oral, Heart Rate: 66, Respiratory Rate: 15, BP: 164/78, Pulse Oximetry: 99, Weight: 63.800 Oxygen Flow Rate: 0 Pulse Oximetry Reflects: adequate oxygenation Physical Exam General: The patient is well developed, well nourished, nontoxic appearing and is in no acute distress. Skin: [place], warm and dry with no rashes. HEENT: Head was normocephalic and atraumatic. Eyes - pupils equal, round, reactive to light and accommodation. Extraocular movements were intact. Conjunctivae were nonicteric. Ears - bilateral tympanic membranes were normal. The mouth and oropharynx were clear with moist mucous membranes. There were no pharyngeal exudates or erythema. Neck: Supple and nontender. There was no jugular venous distention, lymphadenopathy, thyromegaly or masses. Chest: Clear to auscultation bilaterally without wheezes, rales or rhonchi. No accessory muscle use. No dullness to percussion. Heart: Rate regular and rhythmic. S1, S2. No murmurs. Palpation of the chest wall was normal. No rubs or thrills. Abdomen: Surgical scars noted to abdomen. No peritoneal signs with diffuse abdominal pain and hyper active bowel sounds. No guarding or rebound. No hepatosplenomegaly or palpable masses. Extremities: No cyanosis, clubbing or edema. The patient moves all extremities. Pulses were equal and symmetric. Neurologic: Cranial nerves II-XII were intact. Sensation was intact to light touch throughout. Motor strength was 5/5 in all four extremities. Deep tendon reflexes were intact in both upper and lower extremities. Psychologic: The patient was oriented to person, place and time. The patient demonstrated appropriate judgement and insight. Progress Results/Orders Results/Orders Vital Signs 03/05/25 03/05/25 12:51 19:21 Temp 97.1 98.4 Pulse 78 66 Resp 16 16 B/P (MAP) 128/64 164/78 (106) Pulse Ox 100 99 O2 Flow Rate 0 0 Laboratory Tests Test 03/05/25 13:24 03/05/25 13:30 Urine Specimen Description Cln catch midstream Urine Color Yellow Urine Clarity Clear Urine pH 7.5 Urine Specific [place] 1.015 Urine Protein Negative Urine Glucose (UA) Negative Urine Ketones Negative Urine Occult Blood Negative Urine Nitrite Negative Urine Bilirubin Negative Urine Urobilinogen 0.2 Urine Leukocyte Esterase Negative Urine Culture Indicated Not ind Volume Urine Centrifuged 10 ml Urine HCG, Qualitative Negative Urine Comment White Blood Count 6.0 Red Blood Count 4.03 L Hemoglobin 11.7 L Hematocrit 35.4 Mean Corpuscular Volume 87.7 Mean Corpuscular Hemoglobin 29.0 Mean Corpuscular Hemoglobin Concent 33.1 Red Cell Distribution Width 15.1 H Platelet Count 343 Mean Platelet Volume 9.6 Neutrophils (%) (Auto) 61.1 Lymphocytes (%) (Auto) 31.0 Monocytes (%) (Auto) 5.4 Eosinophils (%) (Auto) 1.7 Basophils (%) (Auto) 0.8 Neutrophils # (Auto) 3.7 Lymphocytes # (Auto) 1.9 Monocytes # (Auto) 0.3 Eosinophils # (Auto) 0.1 Basophils # (Auto) 0.0 CBC Comment Sodium Level 139 Potassium Level 4.4 Chloride Level 106 Carbon Dioxide Level 28.6 Anion Gap 4 L Blood Urea Nitrogen 8 Creatinine 0.67 Estimated GFR/1.73 m2 86 BUN/Creatinine Ratio 11.9 Glucose Level 100 Calcium Level 8.9 Total Bilirubin 0.3 Aspartate Amino Transf (AST/SGOT) 14 Alanine Aminotransferase (ALT/SGPT) 20 Alkaline Phosphatase 93 Total Protein 7.4 Albumin 3.2 L Globulin 4.2 Albumin/Globulin Ratio 0.8 L Lipase 33 Chemistry Comments EKG/XRAY/CT/US/VASC/MRI EKG : Additional Comment [facility] Test Date: 2025-03-05 Test Time: 21:05:30 Pat Name: MORGAN HANSEN Department[facility]- [facility]: [id number] Room: Gender: 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 Ashvin Jung Measurements Intervals [place] Rate: 68 P: 56 NV: 146 QRS: 61 QRSD: 90 T: 44 QT: 398 QTc: 424 Interpretive Statements Sinus rhythm Electronically Signed On 03-05-2025 22:09:[address] Ashvin Jung Please click the below link to view image of tracing. EKG Date and Time:03/05/252104 Electronically Signed by: ASHVIN JUNG MD Date and Time: 03/05/252208 Departure Time of Disposition: 22:11 Disposition: 01 HOME / SELF CARE / HOMELESS Impression: Primary Impression: Abdominal pain Additional Impression: Diarrhea Condition: Stable Discharge Instructions: Abdominal Pain (Nonspecific) Additional Instructions: Follow up with your surgeon as scheduled. [place] return for any new or worsening symptoms like fevers. Referrals: NO PRIMARY CARE PROVIDER (PCP) Signature Scribe Signature: Scribed for Ashvin Jung MD by Khang Shah . 03/05/25 20:38 Attestation: The note accurately reflects work and decisions made by me.Ashvin Jung MD 03/05/25 20:34 ASHVIN JUNG MD Mar 05, 2025 20:34 KHANG FITZGERALD Mar 05, 2025 20:38
[2025-03-05] MEDS: normal saline 1000ML IV soln IVB ONE (20:35)
--- NOTE | 2025-03-05 21:08 | ELECTROCARDIOGRAPH REPORT ---
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 Rodrick Jung Measurements Intervals [place] Rate: 68 P: 56 MT: 146 QRS: 61 QRSD: 90 T: 44 QT: 398 QTc: 424 Interpretive Statements Sinus rhythm Electronically Signed On 03-05-2025 22:09:[address] Rodrick Jung Please click the below link to view image of tracing.
[2025-03-05] MEDS: normal saline 1000ml 1,000 ML IV ONE (21:45)
[2025-03-05 23:00] VITALS: BP 146/67; PULSE 68; RESP 15; O2SAT 98
[2025-03-06] MEDS: normal saline 1000ml 1,000 ML IV ONE
== END 2025-03-06 02:29 | disposition home or self-care (01) ==
LOC: ER 12:45
DX: R10.9 Unspecified abdominal pain (principal); R19.7 Diarrhea, unspecified; Z90.49 Acquired absence of other specified parts of digestive tract; Z20.822 Contact with and (suspected) exposure to COVID-19
CPT/HCPCS: 36415; 80053; 81003; 81025; 83605; 83690; 84145; 85025; 87040; 87811; 93005; 96361; 96374; 99284; J2270; J7030

== ENCOUNTER 2025-03-11 18:18 | Emergency (ER) | payer MEDICAID ==
[~2025-03-11] VITALS: Ht 154.9 cm; Wt 64.0 kg
[2025-03-11 19:23] LABS: MEAN PLATELET VOLUME 9.7 FL (7.4-10.4); RED CELL DISTRIBUTION WIDTH 14.9 % (11.5-14.5)
[2025-03-11 19:46] LABS: CREATININE 0.71 MG/DL (0.40-0.90); TOTAL CARBON DIOXIDE 27.3 MMOL/L (24-32); eCRCL 51 ML/MIN; eGFR 81 ML/MIN
--- NOTE | 2025-03-11 21:52 | RADIOLOGY REPORT ---
Exam: CT CT ABDOMEN PELVIS History: abd pain Comparison Study: CT CT ABDOMEN PELVIS W/ IV CONTRAST on DOS: 02/17/25, US ULTRASOUND OF ABDOMEN on DO S: 02/17/25 TECHNIQUE: Multidetector CT of the abdomen was performed from lung bases to pubic symphysis. Imaging was performed without IV contrast. Axial, coronal and sagittal multiplanar reformats were obtained fr om the axial data set by the technologist. Radiation Dose Information: Dose-length product is 1133 mGy*cm FINDINGS: Limited sections of the lung bases demonstrate no focal pulmonary mass. The liver, spleen, pancreas, and both adrenal glands demonstrate no acute findings. Gallbladder is either surgically removed or contracted and contains cholelithiasis. Moderate hiatal hernia; otherwise stomach is unremarkable. The small bowel loops are not dilated. The appendix is normal. No colonic obstruction. Colonic diverticulosis without diverticulitis. Bilateral kidneys are unremarkable. No hydronephrosis. The urinary bladder is distended. No significant lymphadenopathy. No free air or free fluid. Pelvic ventral midline postsurgical changes. The aorta and IVC demonstrate no acute findings. Mild atherosclerosis of the abdominal vasculature. Visualized osseous structures demonstrate no acute abnormality. IMPRESSION: 1. No acute intra-abdominal process.
--- NOTE | 2025-03-11 21:55 | Physician Documentation ---
History of Present Illness ~ Chief Complaint: Abdominal Pain Stated Complaint: ABDOMINAL PAIN Time Seen by MD: 21:53 HPI Patient presents to the emergency room with generalized abdominal pain. She states she has been having this for several months. She was admitted here in January and had a cholecystectomy. She states that her pain really has not changed since that time. Pain is intermittent. Denies constipation or fevers. Medication Reconciliation Allergies: Coded Allergies: No Known Allergies (Unverified , 03/05/25) Scheduled Omeprazole (Omeprazole), 1 CAP PO BKF Scheduled PRN Acetaminophen (Tylenol), 1 TAB PO Q8H PRN for pain or fever, (Reported) Past Medical History Past Medical History: Bowel Obstruction, Hernia Past Surgical History: cholecystectomy Review of Systems ROS All review of systems negative except as per HPI Physical Exam Vital Signs: Temperature: 98.6, Source: Oral, Heart Rate: 77, Respiratory Rate: 16, BP: 125/57, Pulse Oximetry: 97, Weight: 64.000 Oxygen Flow Rate: 0 Physical Exam General: Patient is awake, alert, oriented x4 in no acute distress and well appearing.~ Head: Normocephalic and atraumatic. Eyes: Conjunctival normal. EOMI. PERRL. ENT: Mucous membranes moist. Neck: Supple, trachea is midline. Chest: Clear to auscultation bilaterally without rales, rhonchi, or wheezes. There is no accessory muscle use or retractions. Cardiac: RRR without murmurs, gallops, or rubs. Abd: Soft, nondistended, mild diffuse tenderness to palpation without peritonitis Progress Results/Orders Results/Orders Orders - MIGUEL LARKIN MD Urinalysis, Cult If Indicated (03/11/25 18:39) Ct Abdomen Pelvis (03/11/25 21:09) Completed Orders - MIGUEL LARKIN MD Cbc/Diff (03/11/25 18:39) Lipase (03/11/25 18:39) CMP (03/11/25 18:39) Ct Abdomen Pelvis (03/11/25 21:09) Vital Signs 03/11/25 18:34 Temp 98.6 Pulse 77 Resp 16 B/P (MAP) 125/57 Pulse Ox 97 O2 Flow Rate 0 Laboratory Tests Test 03/11/25 19:08 White Blood Count 6.0 Red Blood Count 3.94 L Hemoglobin 11.5 L Hematocrit 34.6 L Mean Corpuscular Volume 87.8 Mean Corpuscular Hemoglobin 29.3 Mean Corpuscular Hemoglobin Concent 33.4 Red Cell Distribution Width 14.9 H Platelet Count 266 Mean Platelet Volume 9.7 Neutrophils (%) (Auto) 50.3 Lymphocytes (%) (Auto) 39.9 Monocytes (%) (Auto) 6.6 Eosinophils (%) (Auto) 2.6 Basophils (%) (Auto) 0.6 Neutrophils # (Auto) 3.0 Lymphocytes # (Auto) 2.4 Monocytes # (Auto) 0.4 Eosinophils # (Auto) 0.2 Basophils # (Auto) 0.0 CBC Comment Sodium Level 141 Potassium Level 3.8 Chloride Level 106 Carbon Dioxide Level 27.3 Anion Gap 8 Blood Urea Nitrogen 13 Creatinine 0.71 Estimated GFR/1.73 m2 81 BUN/Creatinine Ratio 18.3 Glucose Level 108 H Calcium Level 9.2 Total Bilirubin 0.3 Aspartate Amino Transf (AST/SGOT) 15 Alanine Aminotransferase (ALT/SGPT) 17 Alkaline Phosphatase 89 Total Protein 7.4 Albumin 3.3 L Globulin 4.1 Albumin/Globulin Ratio 0.8 L Lipase 37 Chemistry Comments Medical Decision Making Findings Patient presents to the emergency room with generalized abdominal pain as per HPI. Differentials include but are not limited to diverticulitis cholecystitis, postoperative infection, pancreatitis, constipation therefore emergent labs and imaging indicated. Labs and imaging are reassuring. Possible constipation we will treat her empirically. ER precautions discussed. Departure Disposition: HOME / SELF CARE / HOMELESS Impression: Primary Impression: Abdominal pain Condition: Stable Discharge Instructions: Abdominal Pain (Nonspecific) Referrals: NO PRIMARY CARE PROVIDER (PCP) Prescriptions Docusate Sodium (Dulcolax Stool Softener) 100 Mg Capsule 1 CAP PO Q12H, #30 CAP 0 Refills Prov: MIGUEL ALRKIN MD 03/11/25 Acetaminophen (Tylenol Extra Strength) 500 Mg Tablet 2 TABLET PO Q6H, #30 TABLET 1 Refill Prov: MIGUEL LARKIN MD 03/11/25 Ibuprofen* (Motrin*) 400 Mg Tablet 400 MG PO Q6H, #20 TAB Prov: MIGUEL LARKIN MD 03/11/25 Education Educated: Patient Educated regarding: diagnosis, treatment, need for follow up Signature Scribe Signature: No scribe Attestation: The note accurately reflects work and decisions made by me.Miguel Larkin MD 03/11/25 22:07 MIGUEL LARKIN MD Mar 11, 2025 21:55
[2025-03-11 22:06] VITALS: BP 142/69; PULSE 66; RESP 16; O2SAT 100
[2025-03-11] MEDS ORDERED: ACET-812 PO (22:06)
[2025-03-11] MEDS ORDERED: DOCU-171 PO (22:06)
[2025-03-11] MEDS ORDERED: IBUP-1984 PO (22:06)
[2025-03-11 22:16] VITALS: TEMP 98.1
== END 2025-03-11 22:21 | disposition home or self-care (01) ==
LOC: ER 18:18
DX: R10.84 Generalized abdominal pain (principal); Z90.49 Acquired absence of other specified parts of digestive tract; Z79.899 Other long term (current) drug therapy
CPT/HCPCS: 36415; 74176; 80053; 83690; 85025; 99284